=== PATIENT | male | born 1965 | race Caucasian/White ===

== ENCOUNTER 2025-03-31 14:18 | Inpatient (IN) | payer BC, MEDICAID ==
[~2025-03-31] VITALS: Ht 172.7 cm; Wt 115.1 kg
--- NOTE | 2025-03-31 14:37 | ED.PDOC ---
History of Present Illness HPI Comments 59 year old male presents to the ED for the c/c of HTN. Pt states that he was at [facility] for sustaining a Lower Left leg injury after falling off a ladder. Pt was noted to have a BP of 185/105 and was advised to present to the ED. Pt is noted to have a BP of 161/139 upon Triage assessment. No other symptoms or modifying factors reported at this time. Time Seen by MD: 14:33 Reviewed Notes: Nurses Notes, Medications, Allergies Allergies: Coded Allergies: NO KNOWN ALLERGIES (Unverified , 03/31/25) Information Source: Patient, Spouse Mode of Arrival: Ambulatory Severity: Moderate Timing: Hours Duration: Since onset, Hours Prehospital treatment: None Past Medical History PAST MEDICAL HISTORY: Denies Surgical History: Denies all surgeries Family History Family History: No family hx of DM Social History Smoker: Cigarettes Alcohol: Denies ETOH Use Drugs: Denies Drug Use Lives In: Home Constitutional: denies: chills, diaphoresis, fatigue, fever, malaise, sweats, weakness, others EENTM: denies: blurred vision, double vision, ear bleeding, ear discharge, ear drainage, ear pain, ear ringing, eye pain, eye redness, hearing loss, mouth pain, mouth swelling, nasal discharge, nose bleeding, nose congestion, nose pain, photophobia, tearing, throat pain, throat swelling, voice changes, others Respiratory: denies: cough, hemoptysis, orthopnea, SOB at rest, shortness of breath, SOB with excertion, stridor, wheezing, others Cardiovascular: denies: chest pain, dizzy spells, diaphoresis, Dyspnea on exertion, edema, irregular heart beat, left arm pain, lightheadedness, palpitations, PND, syncope, others Gastrointestinal: denies: abdomen distended, abdominal pain, blood streaked bowels, constipated, diarrhea, dysphagia, difficulty swallowing, hematemesis, melena, nausea, poor appetite, poor fluid intake, rectal bleeding, rectal pain, vomiting, others Genitourinary: denies: burning, dysuria, flank pain, frequency, hematuria, incontinence, penile discharge, penile sore, pain, testicle pain, testicle swelling, urgency, others Neurological: denies: dizziness, fainting, headache, left sided numbness, left sided weakness, numbness, paresthesia, pre-existing deficit, right sided nu mbness, right sided weakness, seizure, speech problems, tingling, tremors, weakness, others Musculoskeletal: denies: back pain, gout, joint pain, joint swelling, muscle pain, muscle stiffness, neck pain, others Integumetry: denies: bruises, change in color, change in hair/nails, dryness, laceration, lesions, lumps, rash, wounds, others Allergic/Immunocompromised: denies: Difficulty Healing, Frequent Infections, Hives, Itching, others Hematologic/Lymphatic: denies: anemia, blood clots, easy bleeding, easy bruising, swollen glands, others Endocrine: denies: excessive hunger, excessive sweating, excessive thirst, excessive urination, flushing, intolerance to cold, intolerance to heat, unexplained weight gain, unexplained weight loss, others Psychiatric: denies: anxiety, bipolar disorder, depression, hopeless, panic disorder, schizophrenia, sleepless, suicidal, others All Other Systems: Reviewed and Negative Physical Exam General Appearance: Moderate Distress HEENT: Normal ENT Inspection, Pharynx Normal, TMs Normal Neck: Full Range of Motion, Non-Tender, Normal, Normal Inspection Respiratory: Chest Non-Tender, Lungs Clear, No Accessory Muscle Use, No Respiratory Distress, Normal Breath Sounds Cardiovascular: No Edema, No JVD, No Murmur, No Gallop, Normal Peripheral Pulses, Regular Rate/Rhythm Breast Exam: Deferred Gastrointestinal: No Organomegaly, Non Tender, No Pulsatile Mass, Normal Bowel Sounds, Soft Genitalia: Deferred Pelvic: Deferred Rectal: Deferred Extremities: No calf tenderness, Normal capillary refill, Normal inspection, Normal range of motion, Non-tender, No pedal edema Musculoskeletal : Apperance: Normal Neurologic: Alert, laboratory technologist II-XII nml as Tested, No Motor Deficits, Normal Affect, Normal Mood, No Sensory Deficits Cerebellar Function: Normal Reflexes: Normal Skin: Dry, Normal Color, Warm Lymphatic: No Adenopathy Was a procedure done? Was a procedure done?: No EKG EKG : Pulse Rate (adult): 78 [place]: Normal Cardiac Rhythm: NSR Block: None Hypertrophy: None ST: Normal Differential Dx Considerations may include: Hypertensive urgency, hypertensive crisis, accelerated hypertension X-Ray, Labs, Meds, VS Vital Signs Date Time Temp Pulse Resp B/P (MAP) Pulse Ox O2 Delivery O2 Flow Rate FiO2 6/23/25 16:57 190/121 03/31/25 15:08 79 Room Air* 0 21 03/31/25 15:05 177/127 03/31/25 14:45 98.1 79 16 177/127 (144) 96 98.1 03/31/25 14:40 78 03/31/25 14:38 78 Lab Test 03/31/25 14:48 Range/Units White Blood Count 11.2 H 4.4-10.8 10^3/uL Red Blood Count 5.85 4.5-5.90 10^6/uL Hemoglobin 18.0 H 13.5-17.5 g/dL Hematocrit 51.6 41.0-53.0 % Mean Corpuscular Volume 88.1 80.0-100.0 fL Mean Corpuscular Hemoglobin 30.7 28.0-32.0 pg Mean Corpuscular Hemoglobin Concent 34.9 32.0-36.0 g/dL Red Cell Distribution Width 12.7 11.8-14.3 % Platelet Count 203 140-450 10^3/uL Mean Platelet Volume 8.1 6.9-10.8 fL Neutrophils (%) (Auto) 64.5 37.0-80.0 % Lymphocytes (%) (Auto) 24.2 10.0-50.0 % Monocytes (%) (Auto) 7.2 0.0-12.0 % Eosinophils (%) (Auto) 3.2 0.0-7.0 % Basophils (%) (Auto) 0.9 0.0-2.0 % Neutrophils # (Auto) 7.3 1.6-8.6 10 ^3/uL Lymphocytes # (Auto) 2.7 0.4-5.4 10 ^3/uL Monocytes # (Auto) 0.8 0-1.3 10 ^3/uL Eosinophils # (Auto) 0.4 0-0.8 10 ^3/uL Basophils # (Auto) 0.1 0-0.2 10 ^3/uL Nucleated Red Blood Cells 0.2 % Sodium Level 140 136-145 mmol/L Potassium Level 3.9 3.5-5.1 mmol/L Chloride Level 108 H 98-107 mmol/L Carbon Dioxide Level 22 20-31 mmol/L Anion Gap 10 5-15 Blood Urea Nitrogen 15 9-23 mg/dL Creatinine 1.01 0.700-1.30 mg/dL Glomerular Filtration Rate Calc 86 >90 mL/min BUN/Creatinine Ratio 14.9 10.0-20.0 Serum Glucose 95 74-106 mg/dL Calcium Level 10.6 H 8.7-10.4 mg/dL Current Medications Medications (Trade) Dose Ordered Sig/Ren Route Start Time Stop Time Status Last Admin Clonidine HCl (Catapres Tablet) 0.2 mg ONCE ONCE PO 03/31/25 14:45 03/31/25 14:46 DC 03/31/25 15:05 FINDINGS/IMPRESSION: There is no evidence of acute fracture or dislocation. The visualized joint space is well maintained. The alignment is anatomical. There is no radiopaque foreign body. The patient was given clonidine 0.2 mg p.o. The patient's CBC is within normal limits except for an elevated white blood cell count of 11.2 The rest of the CBC is within normal limits The chemistry panel is within normal limits At this time, the patient is being admitted An IV Hep-Lock was established because the patient's blood pressure remained elevated The patient is also being started on hydralazine IV push at this time Images Reviewed?: Images reviewed and evaluated by me Time of 1ST Reevaluation: 15:03 Reevaluation 1ST: Unchanged Patient Education/Counseling: Diagnosis, Treatment, Prognosis Family Education/Counseling: Diagnosis, Treatment, Prognosis SEPSIS Sepsis Screen Physician Orders L Tib Fib Xray (03/31/25 14:33) Heplock Iv (03/31/25 ) Machine Shop Instructor (03/31/25 ) Pulse Oximetry (03/31/25 ) Blood Pressure (03/31/25 ) Vital Signs Date Time Temp Pulse Resp B/P (MAP) Pulse Ox O2 Delivery O2 Flow Rate FiO2 03/31/25 16:57 190/121 03/31/25 15:08 79 Room Air* 0 21 03/31/25 15:05 177/127 03/31/25 14:45 98.1 79 16 177/127 (144) 96 98.1 03/31/25 14:40 78 03/31/25 14:38 78 Laboratory Tests Test 03/31/25 14:48 White Blood Count 11.2 10^3/uL (4.4-10.8) H Medications Medications Dose Ordered Sig/Ren Route Start Time Stop Time Status Last Admin Dose Admin Clonidine HCl 0.2 mg ONCE ONCE PO 03/31/25 14:45 03/31/25 14:46 DC 03/31/25 15:05 Departure 1 Departure Time of Disposition: 17:19 Impression: Primary Impression: Hypertensive crisis Disposition: 09 ADMITTED INPATIENT Admit to: Tele Condition: Fair Critical Care Note Critical Care Time?: Yes (45 min-critical care time only) Stability Stability form required: Yes Unstable for transfer: Telemetry monitoring (Telemetry monitoring required), ED Physician Assesment (Clinical assesment) Heart Score Heart Score: Heart Score Response (Comments) Value History N/A 0 EKG N/A 0 Age N/A 0 Risk Factors N/A 0 Troponin N/A 0 Total 0 I personally scribed for STEVEN PEREZ MD ([email or web address]) on 03/31/25 at 14:36. Electronically submitted by Israel Dumont ([email or web address] I personally scribed for STEVEN PEREZ MD ([email or web address]) on 03/31/25 at 14:40. Electronically submitted by Israel Dumont ([email or web address]). I personally scribed for STEVEN PEREZ MD ([email or web address]) on 03/31/25 at 15:49. Electronically submitted by Israel Dumont ([email or web address]). STEVEN PEREZ MD Mar 31, 2025 14:36
--- NOTE | 2025-03-31 14:49 | ECG ---
[facility] Test Date: 2025-03-31 Test Time: 14:38:50 Pat Name: ALEJANDRO SHARMA Department: ER Room: [facility] Gender: M Rock Crusher: GP : 1965 Requested By: STEVEN PEREZ Order Number: [id number] Reading MD: Constantino Valdovinos Measurements Intervals Colver Rate: 78 P: 72 MS: 151 QRS: 41 QRSD: 87 T: 8 QT: 385 QTc: 439 Interpretive Statements Sinus rhythm Electronically Signed On 04-01-2025 22:55:39 PDT by Constantino Valdovinos Please click the below link to view image of tracing.
[2025-03-31] MEDS: cloNIDine HCL 0.1 MG TAB PO ONE (15:05)
[2025-03-31 15:08] VITALS: PULSE 79
[2025-03-31 15:11] LABS: Basophils # (auto) 0.1 10 ^3/uL (0-0.2); Basophils % (auto) 0.9 % (0.0-2.0); Eosinophils # (auto) 0.4 10 ^3/uL (0-0.8); Eosinophils % (auto) 3.2 % (0.0-7.0); Hematocrit 51.6 % (41.0-53.0); Lymphocytes # (auto) 2.7 10 ^3/uL (0.4-5.4); Lymphocytes % (auto) 24.2 % (10.0-50.0); Mean Corpuscular Hemoglobin 30.7 pg (28.0-32.0); Mean Corpuscular Hgb Conc. 34.9 g/dL (32.0-36.0); Mean Corpuscular Volume 88.1 fL (80.0-100.0); Monocytes # (auto) 0.8 10 ^3/uL (0-1.3); Monocytes % (auto) 7.2 % (0.0-12.0); Neutrophils # (auto) 7.3 10 ^3/uL (1.6-8.6); Neutrophils % (auto) 64.5 % (37.0-80.0); Nucleated Red Blood Cells % 0.2 %; Platelet Count (auto) 203 10^3/uL (140-450); Red Blood Cells 5.85 10^6/uL (4.5-5.90); Red Cell Distribution Width 12.7 % (11.8-14.3); White Blood Cell 11.2 10^3/uL (4.4-10.8)
[2025-03-31 15:12] LABS: Potassium 3.9 mmol/L (3.5-5.1); Sodium 140 mmol/L (136-145)
[2025-03-31 15:13] LABS: Anion Gap 10 (5-15); Carbon Dioxide 22 mmol/L (20-31)
[2025-03-31 15:14] LABS: Calcium 10.6 mg/dL (8.7-10.4); Chloride 108 mmol/L (98-107)
[2025-03-31 15:18] LABS: Glucose 95 mg/dL (74-106)
[2025-03-31 15:19] LABS: BUN/Creatinine Ratio 14.9 (10.0-20.0); Blood Urea Nitrogen 15 mg/dL (9-23)
--- NOTE | 2025-03-31 15:32 | DVH ---
CLINICAL INDICATION: fall TECHNIQUE: 3 radiographic views of the left tibia and fibula were obtained. Comparison: None FINDINGS/IMPRESSION: There is no evidence of acute fracture or dislocation. The visualized joint space is well maintained. The alignment is anatomical. There is no radiopaque foreign body.
[2025-03-31] MEDS: hydrALAZINE HCL 20 MG/ML VL IV ONE (18:07)
[2025-03-31] MEDS ORDERED: ONDANSETRON HCL 4 MG/2 ML VIAL IV PRN (19:30)
[2025-04-01] VITALS (8 sets, daily range): BP systolic 119–155; BP diastolic 70–102; PULSE 56–104; RESP 18–20; TEMP 97.7–98.4; O2SAT 93–98
--- NOTE | 2025-04-01 00:21 | DVHHP2 ---
History of Present Illness Reason for Visit: High blood pressure History of Present Illness 59-year-old male presents for evaluation of high blood pressure. Patient was seen earlier at a clinic today and was noted to have a blood pressure in the 180s. He was advised to present to the emergency department for further evaluation. Denies headache or chest pain. Reports not currently taking any antihypertensives. Past Medical History Denies Past Surgical History Denies Family History Noncontributory Smoke: <1 pack per day ALCOHOL: none Drugs: None Lives: with Family Review of Systems Review of Systems Review of systems are currently negative otherwise addressed in HPI. Allergies: Coded Allergies: NO KNOWN ALLERGIES (Unverified , 03/31/25) Medications Current Medications Medications Dose Ordered Sig/Ren Route Start Time Stop Time Status Last Admin Dose Admin Hydralazine HCl 10 mg Q6HP PRN IV 03/31/25 19:30 Ondansetron HCl 4 mg Q4HP PRN IV 03/31/25 19:30 Exam Vital Signs Vital Signs Date Time Temp Pulse Resp B/P (MAP) Pulse Ox O2 Delivery O2 Flow Rate FiO2 03/31/25 18:07 154/101 03/31/25 15:08 79 Room Air* 0 21 03/31/25 14:45 98.1 16 96 98.1 Exam Gen: 59-year-old male in no apparent distress. Skin: Warm, dry, normal color and texture, no rash. HEENT: Normocephalic atraumatic, mucous membranes moist and pink. Neck: Cervical and supraclavicular nodes normal without enlargement, trachea is midline, thyroid gland is normal without masses. Pulmonary: Clear to auscultation and percussion bilaterally. Cardiac: Regular rate and rhythm. No murmur Abdomen: Soft, nontender, nondistended, bowel sounds present all 4 quadrants, no guarding, no rigidity, no organomegaly. Extremities: No cyanosis, clubbing, no edema Neuro: Cranial nerves II through XII grossly intact, normal affect and speech, no focal motor deficits. Labs/Xrays Labs Test 03/31/25 14:48 Range/Units White Blood Count 11.2 H 4.4-10.8 10^3/uL Red Blood Count 5.85 4.5-5.90 10^6/uL Hemoglobin 18.0 H 13.5-17.5 g/dL Hematocrit 51.6 41.0-53.0 % Mean Corpuscular Volume 88.1 80.0-100.0 fL Mean Corpuscular Hemoglobin 30.7 28.0-32.0 pg Mean Corpuscular Hemoglobin Concent 34.9 32.0-36.0 g/dL Red Cell Distribution Width 12.7 11.8-14.3 % Platelet Count 203 140-450 10^3/uL Mean Platelet Volume 8.1 6.9-10.8 fL Neutrophils (%) (Auto) 64.5 37.0-80.0 % Lymphocytes (%) (Auto) 24.2 10.0-50.0 % Monocytes (%) (Auto) 7.2 0.0-12.0 % Eosinophils (%) (Auto) 3.2 0.0-7.0 % Basophils (%) (Auto) 0.9 0.0-2.0 % Neutrophils # (Auto) 7.3 1.6-8.6 10 ^3/uL Lymphocytes # (Auto) 2.7 0.4-5.4 10 ^3/uL Monocytes # (Auto) 0.8 0-1.3 10 ^3/uL Eosinophils # (Auto) 0.4 0-0.8 10 ^3/uL Basophils # (Auto) 0.1 0-0.2 10 ^3/uL Nucleated Red Blood Cells 0.2 % Sodium Level 140 136-145 mmol/L Potassium Level 3.9 3.5-5.1 mmol/L Chloride Level 108 H 98-107 mmol/L Carbon Dioxide Level 22 20-31 mmol/L Anion Gap 10 5-15 Blood Urea Nitrogen 15 9-23 mg/dL Creatinine 1.01 0.700-1.30 mg/dL Glomerular Filtration Rate Calc 86 >90 mL/min BUN/Creatinine Ratio 14.9 10.0-20.0 Serum Glucose 95 74-106 mg/dL Calcium Level 10.6 H 8.7-10.4 mg/dL Assessment/Plan Assessment/Plan Assessment Hypertensive crisis Obesity Plan Admit plan Admit the patient to [place] [facility] [place] Start lisinopril Echocardiogram pending As needed antihypertensives Continue treatment per orders. Plan discussed with: Patient My Orders Orders - OTONIEL CARTAGENACNP Procedure Category Date Status Time Hydralazine Injection PHA 03/31/25 In Process (Apresoline Inject 19:30 Basic Metabolic Panel LAB 04/01/25 Logged 04:00 Admit ADMIT 03/31/25 Transmitted 19:26 Ondansetron Hcl PHA 03/31/25 In Process (Zofran) 19:30 Cardiac DIET 04/01/25 Transmitted Diet-2gna,Lofat,Lochol Breakfast Echo 2d Mode Cardiac US 03/31/25 Logged DOP 19:26 Condition: Stable JACOB 03/31/25 In Process 19:26 Bedrest With Bathroom JACOB 03/31/25 In Process Privileg 19:26 Date of Service: Mar 31, 2025 Billing Provider: OTONIEL CARTAGENA Common Visit Codes: [id number] INP/OBS CARE (HIGH) OTONIEL CARTAGENA Apr 01, 2025 00:21
[2025-04-01 01:51] LABS: Chloride 106 mmol/L (98-107); Potassium 3.7 mmol/L (3.5-5.1); Sodium 140 mmol/L (136-145)
[2025-04-01 01:52] LABS: Anion Gap 12 (5-15); Carbon Dioxide 22 mmol/L (20-31)
[2025-04-01 01:57] LABS: BUN/Creatinine Ratio 15.3 (10.0-20.0); Blood Urea Nitrogen 21 mg/dL (9-23)
[2025-04-01 02:05] LABS: Calcium 10.6 mg/dL (8.7-10.4); Cholesterol 245 mg/dL (< 200); Glucose 117 mg/dL (74-106); HDL Cholesterol 37 mg/dL (40-59); LDL Cholesterol 191 mg/dL (< 100); Triglycerides 214 mg/dL (< 150)
[2025-04-01] MEDS: hydrALAZINE HCL 20 MG/ML VL IV PRN (03:49)
[2025-04-01] MEDS: HYDROcodone-ACET 7.5/325MG TAB PO PRN (04:38)
[2025-04-01] MEDS: LISINOPRIL 5 MG TAB PO SCH (09:32)
--- NOTE | 2025-04-01 11:25 | DVHPN2 ---
Subjective The patient seen and examined at bedside. Complains of left caft swollen and pain. at bedside. Per he feel of the ladder at home a week ago. XRay tibia/fibula normal. Reviewed: Care Plan, H&P, Labs, Medications, Previous Orders, Radiology Changes from previous H/P or p: No Changes Objective Vitals Vital Signs Date Time Temp Pulse Resp B/P (MAP) Pulse Ox O2 Delivery O2 Flow Rate FiO2 04/01/25 09:32 128/86 04/01/25 09:00 98.4 69 18 96 98.4 04/01/25 03:05 Room Air* 0 21 Intake/Output Intake and Output 04/01/25 07:00 Intake Total 900 ml Balance 900 ml Intake Oral 900 ml # Voids 4 # Bowel Movements 1 General Appearance: Alert, Cooperative, mild distress HEENT: Atraumatic, PERRLA, EOMI, Mucous membr. moist/pink Neck: Supple Lungs: Clear to auscultation, Normal air movement Cardiovascular: Regular rate, Normal S1, Normal S2, No murmurs, Gallops, Rubs Abdomen: Normal bowel sounds, Soft, No tenderness Extremities: Other (left calf swollen) Neuro: Cranial nerves 3-12 NL Psych/Mental Status: Mental status NL Medications Current Medications Medications Dose Ordered Sig/Ren Route Start Time Stop Time Status Last Admin Dose Admin Hydralazine HCl 10 mg Q6HP PRN IV 03/31/25 19:30 04/01/25 03:49 10 MG Ondansetron HCl 4 mg Q4HP PRN IV 03/31/25 19:30 Lisinopril 10 mg DAILY PO 04/01/25 10:00 04/01/25 09:32 10 MG Acetaminophen/ Hydrocodone Bitart 1 tab Q8HP PRN PO 04/01/25 04:30 04/01/25 04:38 1 TAB Acetaminophen 650 mg Q6HP PRN PO 04/01/25 11:15 UNV Laboratory Results Laboratory Tests 03/31/25 14:48 04/01/25 00:30 Chemistry Test 03/31/25 14:48 04/01/25 00:30 Calcium Level 10.6 mg/dL (8.7-10.4) H 10.6 mg/dL (8.7-10.4) H Lipid panel Test 04/01/25 00:30 Cholesterol Level 245 mg/dL (< 200) H HDL Cholesterol 37 mg/dL (40-59) L Triglycerides Level 214 mg/dL (< 150) H HgA1c, TSH Test 04/01/25 00:30 Thyroid Stimulating Hormone (TSH) 1.32 uIU/mL (0.55-4.78) Labs and/or images reviewed: Labs reviewed by me Assessment/Plan Assessment/Plan Hypertensive crisis New onset HTN. Obesity Left calf pain, s/p trauma, felt off ladder last week Plan Continue current management with Lisinopril and Hydralazine PRN DW and patient at bedside. Encourage life style change, increase exercise and diet with low fat, low salt diet. Advice to lose weight. Will order US LLE to rule out DVT. D/C planning when BP better control. Plan discussed with: Patient, Spouse My Orders Orders - MISTY WYMAN MD Procedure Category Date Status Time Acetaminophen Tablet PHA 04/01/25 Logged (Tylenol Tablet) 11:15 Date of Service: Apr 01, 2025 Billing Provider: MISTY WYMAN MD Common Visit Codes: [id number] INP/OBS CARE(HIGH) MISTY WYMAN MD Apr 01, 2025 11:25
[2025-04-01] MEDS: ACETAMINOPHEN 325 MG TAB PO PRN (12:17)
--- NOTE | 2025-04-01 14:56 | DVH ---
Left lower extremity venous duplex Clinical History: trauma of left leg with swelling Comparison: None Findings: Duplex Doppler evaluation of the deep venous system of the left lower extremity from the common femor al vein to the popliteal vein including color Doppler and spectral/pulsed waveform analysis was perfo rmed. The common femoral vein demonstrates appropriate compressibility and waveform variability. There is compressibility/patency of the great saphenous vein at the proximal thigh. The femoral vein demonstrates appropriate compressibility and waveform variability. The deep femoral vein demonstrates appropriate compressibility and waveform variability. The popliteal vein demonstrates appropriate compressibility and waveform variability. There is normal compressibility at the tibioperoneal trunk. Impression: No left femoropopliteal venous thrombosis. A 5.5 x 1.3 x 4.7 cm fluid collection in the left calf. If clinical concern/symptoms persist or worsen, short-interval follow-up study is suggested.
--- NOTE | 2025-04-01 22:52 | DVHSR ---
APPROVED REPORT EXAM: Two-dimensional and M-mode echocardiogram with Doppler and color Doppler. Blood Pressure: 147/70 mmHg INDICATION Hypertension RISK FACTORS Height: 68, Weight: 254 DIMENSIONS LVDd (3.8-5.7cm)LA (2D)3.8 (1.9-4.0cm)Aortic Root4.2 (2.0-3.7cm) LVDs (2.5-4.0cm)LA (MM) (1.9-4.0cm)Aortic Cusp Exc2.4 (1.5-2.0cm) EF (%) 65.0 (55-70%)Rt. Atrium4.1 (1.9-4.0cm)Asc. Aorta cm Mitral Valve MitralMitral Stenosis E wave0.70m/sMV Mean GR.mmHg A wave0.83m/sMV Peak GR.65mmHg E/A ratio0.82D MVAcm2 DECEL [id number] 1/2 [id number] IVRTmsDop MVA2.92cm2 Aortic Valve Aortic ValveAortic Stenosis V11.25m/Conner Mean GR.5mmHg V21.68m/Conner Peak GR.11mmHg LVOT Diameter2.1 (1.8-2.4cm)Doppler AVA2.58cm2 Pulmonic Valve V21.29m/s Tricuspid Valve TR Velocity2.41m/s [id number] Other Information Technically limited study due to patient breathing. Conclusion LV EF IS 65% MILD CALCIFICATION OD AORTIC VALVE NORMAL TV,PV AND MV NO EFFUSION NORMAL RV FUNCTION
[2025-04-02 05:00] VITALS: BP 121/71; PULSE 52; RESP 18; TEMP 98.2; O2SAT 95
[2025-04-02 09:00] VITALS: BP 128/83; PULSE 63; RESP 18; TEMP 97.9; O2SAT 93
[2025-04-02 09:13] LABS: Basophils # (auto) 0 10 ^3/uL (0-0.2); Basophils % (auto) 0.4 % (0.0-2.0); Eosinophils # (auto) 0.3 10 ^3/uL (0-0.8); Eosinophils % (auto) 3.7 % (0.0-7.0); Hematocrit 48.9 % (41.0-53.0); Hemoglobin 16.8 g/dL (13.5-17.5); Lymphocytes % (auto) 24.2 % (10.0-50.0); Mean Corpuscular Hemoglobin 30.7 pg (28.0-32.0); Mean Corpuscular Hgb Conc. 34.4 g/dL (32.0-36.0); Mean Corpuscular Volume 89.4 fL (80.0-100.0); Monocytes # (auto) 0.4 10 ^3/uL (0-1.3); Monocytes % (auto) 5.2 % (0.0-12.0); Neutrophils # (auto) 5.5 10 ^3/uL (1.6-8.6); Neutrophils % (auto) 66.5 % (37.0-80.0); Nucleated Red Blood Cells % 0.1 %; Platelet Count (auto) 174 10^3/uL (140-450); Red Blood Cells 5.47 10^6/uL (4.5-5.90); Red Cell Distribution Width 13.3 % (11.8-14.3); White Blood Cell 8.3 10^3/uL (4.4-10.8)
[2025-04-02 09:21] LABS: Chloride 107 mmol/L (98-107); Potassium 3.7 mmol/L (3.5-5.1); Sodium 141 mmol/L (136-145)
[2025-04-02 09:22] LABS: Anion Gap 8 (5-15); Calcium 9.8 mg/dL (8.7-10.4); Carbon Dioxide 26 mmol/L (20-31)
[2025-04-02 09:27] LABS: BUN/Creatinine Ratio 18.2 (10.0-20.0); Blood Urea Nitrogen 20 mg/dL (9-23)
[2025-04-02 09:29] LABS: Glucose 140 mg/dL (74-106)
[2025-04-02 13:00] VITALS: BP 142/87; PULSE 58; RESP 18; TEMP 97.9; O2SAT 95
[2025-04-02] MEDS ORDERED: LISI10TA34 PO (13:25)
[2025-04-02] MEDS ORDERED: IBU600T PO (13:25)
--- NOTE | 2025-04-02 13:33 | DVHDS2 ---
Discharge Summary Date of Admission Mar 31, 2025 at 19:26 Date of Discharge: Apr 02, 2025 Labs/Diagnostic Data: Laboratory Results Test 04/02/25 08:39 04/01/25 00:30 White Blood Count 8.3 10^3/uL (4.4-10.8) Red Blood Count 5.47 10^6/uL (4.5-5.90) Hemoglobin 16.8 g/dL (13.5-17.5) Hematocrit 48.9 % (41.0-53.0) Mean Corpuscular Volume 89.4 fL (80.0-100.0) Mean Corpuscular Hemoglobin 30.7 pg (28.0-32.0) Mean Corpuscular Hemoglobin Concent 34.4 g/dL (32.0-36.0) Red Cell Distribution Width 13.3 % (11.8-14.3) Platelet Count 174 10^3/uL (140-450) Mean Platelet Volume 8.3 fL (6.9-10.8) Neutrophils (%) (Auto) 66.5 % (37.0-80.0) Lymphocytes (%) (Auto) 24.2 % (10.0-50.0) Monocytes (%) (Auto) 5.2 % (0.0-12.0) Eosinophils (%) (Auto) 3.7 % (0.0-7.0) Basophils (%) (Auto) 0.4 % (0.0-2.0) Neutrophils # (Auto) 5.5 10 ^3/uL (1.6-8.6) Lymphocytes # (Auto) 2.0 10 ^3/uL (0.4-5.4) Monocytes # (Auto) 0.4 10 ^3/uL (0-1.3) Eosinophils # (Auto) 0.3 10 ^3/uL (0-0.8) Basophils # (Auto) 0 10 ^3/uL (0-0.2) Nucleated Red Blood Cells 0.1 % Sodium Level 141 mmol/L (136-145) Potassium Level 3.7 mmol/L (3.5-5.1) Chloride Level 107 mmol/L (98-107) Carbon Dioxide Level 26 mmol/L (20-31) Anion Gap 8 (5-15) Blood Urea Nitrogen 20 mg/dL (9-23) Creatinine 1.10 mg/dL (0.700-1.30) Glomerular Filtration Rate Calc 77 mL/min (>90) BUN/Creatinine Ratio 18.2 (10.0-20.0) Serum Glucose 140 mg/dL (74-106) Calcium Level 9.8 mg/dL (8.7-10.4) Triglycerides Level 214 mg/dL (< 150) Cholesterol Level 245 mg/dL (< 200) LDL Cholesterol 191 mg/dL (< 100) HDL Cholesterol 37 mg/dL (40-59) Thyroid Stimulating Hormone (TSH) 1.32 uIU/mL (0.55-4.78) Other Laboratory Tests 04/02/25 08:39 Brief Hx & Hospital Course: 59 M admitted for hypertension and calf pain s/p trauma. able to walk. bp improved after lisinopril. pain controlled.no pain on ambulation. swelling persists but with trauma likely will need 2-4 weeks. xray clear. Condition at Discharge: Good Final Diagnosis/Problems List ankle sprain hypertension Discharge Disposition: Home Discharge Instruct/Medications Diet: Cardiac 2g Na,low cholest Activity: No Restrictions, As Tolerated Follow Up/Referral: dc clinic Medications: lisinopril motrin Discharge Statement: "Patient was advised to return to the ER or call 911 if any headaches, dizziness, shortness of breath, chest pain, abdominal pain, bleeding, fevers, or worsening of medical condition. Patient was counseled about treatment plan, medications, possible side effects, patientverbalized understanding. All questions were answered to the best of my ability. This discharge took greater then 30 minutes in planning, reviewing documentation, counseling the patient, and discussing with other team members." ASSESSMENT ASSESSMENT Assessment ankle sprain hypertension Date of Service: Apr 02, 2025 Billing Provider: TEDDY PATEL MD Common Visit Codes: [id number]/OBS DISCH DAY >30min TEDDY PATEL MD Apr 02, 2025 13:32
[2025-04-02 16:39] VITALS: BP 151/92; PULSE 47; RESP 18; TEMP 98.4; O2SAT 97
== END 2025-04-02 17:44 | disposition home or self-care (01) | DRG 199 ==
LOC: ER 14:18 → OVERFLOW 19:26 → WEST WING 19:29
PROVIDERS: ADMIT Student in an Organized Health Care Education/Training Program; ATTEND Student in an Organized Health Care Education/Training Program
DX: I16.9 Hypertensive crisis, unspecified (principal); N17.9 Acute kidney failure, unspecified; E66.9 Obesity, unspecified; Z68.38 Body mass index [BMI] 38.0-38.9, adult; I10 Essential (primary) hypertension; S93.492A Sprain of other ligament of left ankle, initial encounter; F17.210 Nicotine dependence, cigarettes, uncomplicated; W11.XXXA Fall on and from ladder, initial encounter; Y93.89 Activity, other specified; Y99.8 Other external cause status; Y92.89 Other specified places as the place of occurrence of the external cause
CPT/HCPCS: 36415; 73590; 80048; 80061; 84443; 85025; 93005; 93306; 93971; 96374; 99291; G0378

== ENCOUNTER 2025-04-29 15:40 | Outpatient (CLI) | payer MEDICAID ==
[~2025-04-29 15:40] MED LIST: IBU600T PO; LISI10TA34 PO
== END 2025-04-29 17:00 | disposition home or self-care (01) ==
LOC: Rad HDHVI 15:40
PROVIDERS: ATTEND Internal Medicine Cardiovascular Disease
DX: I34.0 Nonrheumatic mitral (valve) insufficiency (principal); I10 Essential (primary) hypertension; E78.2 Mixed hyperlipidemia
CPT/HCPCS: 93306

== ENCOUNTER 2025-04-30 13:51 | Outpatient (CLI) | payer MEDICAID ==
[~2025-04-30] VITALS: Ht 172.7 cm; Wt 111.1 kg
== END 2025-04-30 17:00 | disposition home or self-care (01) ==
LOC: Rad HDHVI 13:51
PROVIDERS: ATTEND Internal Medicine Cardiovascular Disease
DX: R00.0 Tachycardia, unspecified (principal); R00.1 Bradycardia, unspecified; I10 Essential (primary) hypertension; E78.00 Pure hypercholesterolemia, unspecified; Z13.6 Encounter for screening for cardiovascular disorders; F17.210 Nicotine dependence, cigarettes, uncomplicated
CPT/HCPCS: 78452; 93017; A9500; 96374